=== PATIENT | male | born 1955 ===

== ENCOUNTER 2024-09-24 22:22 | Emergency (ER) | payer OTHER ==
[2024-09-24 23:07] LABS: #Basophils 0.03 10x3/uL (0.0-0.2); #Eosinophils 0.04 10x3/uL (0.0-0.5); #Neutrophils 4.02 10x3/uL (1.5-8.4); %Basophils 0.5 % (0.0-2.0); %Eosinophils 0.7 % (0.0-6.0); %Lymphocytes 13.6 % (18.0-47.0); %Monocytes 15.5 % (0.0-10.0); %Neutrophils 69.5 % (40.0-75.0); Hematocrit 34.3 % (38.8-50.0); Hemoglobin 11.3 g/dL (13.5-17.5); Mean Corpuscular HGB CONC 32.9 g/dL (32.0-36.0); Mean Corpuscular Hemoglobin 30.5 pg (27.0-33.0); Mean Corpuscular Volume 92.5 fL (81.2-95.1); Platelet Count 153 10x3/uL (150-450); RBC Distribution Width 13.1 % (11.5-14.5); Red Blood Cell (RBC) Count 3.71 10x6/uL (4.32-5.72); White Blood Cell (WBC) Count 5.79 10x3/uL (3.5-10.5)
[2024-09-24 23:27] LABS: ALT (SGPT) 12 U/L (Less than 45); AST (SGOT) 22 U/L (11-34); Albumin 3.5 g/dL (3.1-4.5); Alkaline Phosphatase 47 U/L (40-110); Anion Gap 12 mmol/L (10-20); BUN (Urea Nitrogen) 9 mg/dL (8.4-25.7); Bilirubin, Total 0.3 mg/dL (0.3-1.2); Calc. Creatinine Clearance 0 mL/min (70-130); Calcium 8.5 mg/dL (7.8-10.44); Carbon Dioxide 23 mmol/L (23-31); Chloride 105 mmol/L (98-107); Estimated GFR 97; Globulin 3.1 g/dL (2.4-3.5); Glucose 103 mg/dL (80-115); Lipase 8 U/L (8-78); Potassium 4.1 mmol/L (3.5-5.1); Protein, Total 6.6 g/dL (5.8-8.1); Sodium 136 mmol/L (136-145)
[2024-09-24] MEDS ORDERED: Morphine 4 MG/ML VIAL ONE (23:36)
[2024-09-24] MEDS ORDERED: Ondansetron PF 4 MG/2 ML Vial ONE (23:36)
[2024-09-25] MEDS ORDERED: Piperacillin/Tazobactam 3.375 GM VIAL ONE (00:15)
[2024-09-25] MEDS ORDERED: Acetaminophen 500 MG TAB ONE ×3 (02:46→02:52)
== END 2024-09-25 03:02 ==
LOC: CSHERS 22:22 → EEVIPCON 22:22 → CSHERS 09-25 03:02
DX: K80.20 Calculus of gallbladder without cholecystitis without obstruction (principal); J10.1 Influenza due to other identified influenza virus with other respiratory manifestations; E03.9 Hypothyroidism, unspecified; M19.90 Unspecified osteoarthritis, unspecified site; I73.9 Peripheral vascular disease, unspecified; G43.909 Migraine, unspecified, not intractable, without status migrainosus; Z79.899 Other long term (current) drug therapy
CPT/HCPCS: 76705; 80053; 83605; 83690; 85025; 87040; 87428; J2270; J2405; J2543